=== PATIENT | male | born 1960 | race African-American/Black ===

== ENCOUNTER 2018-04-24 21:41 | Emergency (ER) | payer MEDICAID ==
[~2018-04-24] VITALS: Ht 177.8 cm; Wt 82.6 kg
[~2018-04-24 21:41] MED LIST: AMLO5TAB13 PO; ASPI81CH43 PO; ATOR20TA50 PO; LEV100T PO; LEV50T PO
[2018-04-24 22:03] VITALS: BP 124/86
[2018-04-24 23:05] LABS: Basophils # (auto) 0.1 uL; Basophils % (auto) 1.5 % (0.0-2.0); Eosinophils # (auto) 0.1 uL; Eosinophils % (auto) 2.1 % (0.0-7.0); Hematocrit 38.3 % (41.0-53.0); Lymphocytes # (auto) 2.3 uL; Lymphocytes % (auto) 41.5 % (10.0-50.0); Mean Corpuscular Hemoglobin 32.8 pg (28.0-32.0); Mean Corpuscular Hgb Conc. 33.9 g/dL (32.0-36.0); Mean Corpuscular Volume 96.6 fL (80.0-100.0); Monocytes # (auto) 0.3 uL; Monocytes % (auto) 5.9 % (0.0-12.0); Neutrophils # (auto) 2.7 uL; Nucleated Red Blood Cells % 0.1 %; Platelet Count (auto) 188 10^3/uL (140-450); Red Blood Cells 3.97 10^6/uL (4.5-5.90); White Blood Cell 5.6 10^3/uL (4.4-10.8)
[2018-04-24 23:19] LABS: INR 0.99 (0.9-1.15)
[2018-04-24 23:24] LABS: Alanine Aminotransferase 68 U/L (16-61); Albumin 3.6 g/dL (3.4-5.0); Anion Gap 8 (5-15); Aspartate Aminotransferase 66 U/L (15-37); BUN/Creatinine Ratio 10.5; Blood Urea Nitrogen 13 mg/dL (7-18); Calcium 8.4 mg/dL (8.5-10.1); Carbon Dioxide 22 mmol/L (21-32); Chloride 107 mmol/L (98-107); GFR African American 78 mL/min; GFR Non-African American 64 mL/min; Glucose 91 mg/dL (74-106); Magnesium 2.4 mg/dL (1.6-2.6); Potassium 4.2 mmol/L (3.5-5.1); Sodium 137 mmol/L (136-145)
[2018-04-24 23:31] LABS: Alkaline Phosphatase 72 U/L (45-117); Bilirubin, Total 0.3 mg/dL (0.2-1.0); Total Protein 7.7 g/dL (6.4-8.2)
== END 2018-04-25 01:00 | disposition left against medical advice (07) ==
LOC: ER 21:41
DX: R53.1 Weakness (principal); Z53.21 Procedure and treatment not carried out due to patient leaving prior to being seen by health care provider
CPT/HCPCS: 36415; 71045; 80053; 83735; 83880; 84484; 85025; 85379; 85610; 85730; 93005; 94761

== ENCOUNTER 2020-04-18 07:43 | Emergency (ER) | payer MEDICAID ==
[~2020-04-18] VITALS: Ht 177.8 cm; Wt 97.5 kg
[~2020-04-18 07:43] MED LIST changes: -AMLO5TAB13 PO; +AMLO5TAB15 PO
[2020-04-18 07:55] VITALS: BP 112/62
[2020-04-18] MEDS ORDERED: KETOROLAC TROMETH 60MG/2ML VIAL IM ONE (08:30)
== END 2020-04-18 08:47 | disposition home or self-care (01) ==
LOC: ER 07:43
DX: S83.8X2A Sprain of other specified parts of left knee, initial encounter (principal); M17.12 Unilateral primary osteoarthritis, left knee; F17.210 Nicotine dependence, cigarettes, uncomplicated; E78.5 Hyperlipidemia, unspecified; I10 Essential (primary) hypertension; Z79.82 Long term (current) use of aspirin; Z79.899 Other long term (current) drug therapy; Z86.73 Personal history of transient ischemic attack (TIA), and cerebral infarction without residual deficits; Z90.49 Acquired absence of other specified parts of digestive tract; Z98.890 Other specified postprocedural states; W11.XXXA Fall on and from ladder, initial encounter; Y93.89 Activity, other specified; Y92.89 Other specified places as the place of occurrence of the external cause; Y99.8 Other external cause status
CPT/HCPCS: 73562; 96372; 99283; J1885

== ENCOUNTER 2024-01-19 11:47 | Inpatient (IN) | payer OTHER ==
[~2024-01-19] VITALS: Ht 177.8 cm; Wt 85.2 kg
[~2024-01-19 11:47] MED LIST changes: +AMLO1TAB22 PO; -AMLO5TAB15 PO
[2024-01-19] MEDS: ONDANSETRON HCL 4 MG/2 ML VIAL IV ONE (12:36)
[2024-01-19 12:39] VITALS: PULSE 85; RESP 14; O2SAT 96
[2024-01-19] MEDS: SODIUM CHLORIDE 0.9% 500 ML IVB ONE (12:39)
[2024-01-19 13:10] LABS: Basophils # (auto) 0.1 10 ^3/uL (0-0.2); Basophils % (auto) 1.2 % (0.0-2.0); Chloride 107 mmol/L (98-107); Eosinophils # (auto) 0.1 10 ^3/uL (0-0.8); Eosinophils % (auto) 1.5 % (0.0-7.0); Hemoglobin 11.4 g/dL (13.5-17.5); Lymphocytes # (auto) 2.4 10 ^3/uL (0.4-5.4); Lymphocytes % (auto) 37.8 % (10.0-50.0); Mean Corpuscular Hemoglobin 33.3 pg (28.0-32.0); Mean Corpuscular Hgb Conc. 33.4 g/dL (32.0-36.0); Mean Corpuscular Volume 99.7 fL (80.0-100.0); Monocytes # (auto) 0.3 10 ^3/uL (0-1.3); Monocytes % (auto) 5.5 % (0.0-12.0); Neutrophils # (auto) 3.4 10 ^3/uL (1.6-8.6); Potassium 4.3 mmol/L (3.5-5.1); Red Blood Cells 3.41 10^6/uL (4.5-5.90); Red Cell Distribution Width 13.5 % (11.8-14.3); Sodium 137 mmol/L (136-145); White Blood Cell 6.3 10^3/uL (4.4-10.8)
[2024-01-19 13:11] LABS: Anion Gap 6 (5-15); Carbon Dioxide 24 mmol/L (20-30)
[2024-01-19 13:12] LABS: Calcium 9.6 mg/dL (8.5-10.1)
[2024-01-19 13:16] LABS: BUN/Creatinine Ratio 13.9 (10.0-20.0); Blood Urea Nitrogen 20 mg/dL (9-23); Glucose 80 mg/dL (74-106)
[2024-01-19 15:20] LABS: Urine Bacteria None Seen /hpf (None Seen)
[2024-01-19 15:38] LABS: Urine Blood Negative /uL (Negative); Urine Clarity Clear (Clear); Urine Color Colorless (Yellow); Urine Protein, UAD Negative (Negative); Urine Specific Gravity 1.013 (1.001-1.035); Urine Urobilinogen Normal (Negative); Urine WBC <1 /hpf (0 - 3)
[2024-01-19 20:00] VITALS: PULSE 51; RESP 13; O2SAT 95
[2024-01-19] MEDS ORDERED: ONDANSETRON HCL 4 MG/2 ML VIAL IV PRN (21:00)
[2024-01-19] MEDS ORDERED: ACETAMINOPHEN 325 MG TAB PO PRN (21:00)
[2024-01-19] MEDS ORDERED: HYDROcodone-ACET 5/325MG TAB PO PRN (21:00)
[2024-01-19] MEDS ORDERED: DOCUSATE SOD 100 MG CAP PO PRN (21:00)
[2024-01-19] MEDS: SODIUM CHLORIDE 0.9% 1,000 ML IV SCH (21:05)
[2024-01-19] MEDS: ATORVASTATIN 20 MG TAB PO SCH (22:19)
[2024-01-19] MEDS ORDERED: MORPHINE SULFATE INJ 2 MG/ml SYRG IV PRN (23:45)
[2024-01-19] MEDS ORDERED: NITROGLYCERIN 0.4 MG SL TAB SL PRN (23:45)
[2024-01-20] VITALS (9 sets, daily range): BP systolic 90–126; BP diastolic 32–85; PULSE 41–57; RESP 16–18; TEMP 97.8–98.7; O2SAT 94–100
[2024-01-20] MEDS: LEVOTHYROXINE SODIUM 50 MCG TAB PO SCH (05:41)
[2024-01-20 06:17] LABS: Basophils # (auto) 0.1 10 ^3/uL (0-0.2); Basophils % (auto) 1.2 % (0.0-2.0); Eosinophils # (auto) 0.1 10 ^3/uL (0-0.8); Eosinophils % (auto) 2.4 % (0.0-7.0); Hematocrit 34.9 % (41.0-53.0); Hemoglobin 11.8 g/dL (13.5-17.5); Lymphocytes # (auto) 2.3 10 ^3/uL (0.4-5.4); Lymphocytes % (auto) 42.9 % (10.0-50.0); Mean Corpuscular Hgb Conc. 33.8 g/dL (32.0-36.0); Mean Corpuscular Volume 100.6 fL (80.0-100.0); Monocytes # (auto) 0.3 10 ^3/uL (0-1.3); Monocytes % (auto) 4.8 % (0.0-12.0); Neutrophils # (auto) 2.6 10 ^3/uL (1.6-8.6); Neutrophils % (auto) 48.7 % (37.0-80.0); Red Blood Cells 3.47 10^6/uL (4.5-5.90); Red Cell Distribution Width 13.7 % (11.8-14.3); White Blood Cell 5.3 10^3/uL (4.4-10.8)
[2024-01-20 06:35] LABS: Alanine Aminotransferase 40 U/L (7-40); Albumin 3.9 g/dL (3.2-4.8); Alkaline Phosphatase 42 U/L (46-116); Anion Gap 3 (5-15); Aspartate Aminotransferase 48 U/L (13-40); BUN/Creatinine Ratio 11.9 (10.0-20.0); Bilirubin, Total 0.4 mg/dL (0.2-1.0); Blood Urea Nitrogen 16 mg/dL (9-23); Calcium 9.3 mg/dL (8.7-10.4); Carbon Dioxide 27 mmol/L (20-30); Chloride 108 mmol/L (98-107); Glucose 74 mg/dL (74-106); Potassium 4.5 mmol/L (3.5-5.1); Sodium 138 mmol/L (136-145); Total Protein 6.5 g/dL (5.7-8.2)
[2024-01-20] MEDS: ASPirin 81 mg TAB PO SCH (11:44)
[2024-01-20 11:54] LABS: Urine Bacteria None Seen /hpf (None Seen)
[2024-01-20 12:09] LABS: Urine Blood Negative /uL (Negative); Urine Clarity Clear (Clear); Urine Color Light-Yellow (Yellow); Urine Protein, UAD Negative (Negative); Urine Specific Gravity 1.012 (1.001-1.035); Urine Urobilinogen Normal (Negative); Urine WBC <1 /hpf (0 - 3)
[2024-01-20 12:47] LABS: Amphetamine Screen, Urine Neg (NEGATIVE); Barbiturate Scree,Urine Neg (NEGATIVE); Benzodiazephine Screen, Urine Neg (NEGATIVE); Cannabinoid Screen, Urine Pos (NEGATIVE); Cocaine Screen, Urine Neg (NEGATIVE); Opiate Scree,Urine Neg (NEGATIVE); Phencyclidine Screen, Urine Neg (NEGATIVE)
[2024-01-20] MEDS: LEVOTHYROXINE SODIUM 100 MCG/5 ML INJ IV ONE (18:10)
[2024-01-21] VITALS (8 sets, daily range): BP systolic 90–112; BP diastolic 53–71; PULSE 45–58; RESP 16–18; TEMP 97.6–98.6; O2SAT 96–99
[2024-01-21 05:23] LABS: Chloride 107 mmol/L (98-107); Sodium 138 mmol/L (136-145)
[2024-01-21 05:24] LABS: Anion Gap 6 (5-15); Carbon Dioxide 25 mmol/L (20-30)
[2024-01-21 05:25] LABS: Calcium 9.4 mg/dL (8.5-10.1)
[2024-01-21 05:29] LABS: Blood Urea Nitrogen 15 mg/dL (9-23); Glucose 84 mg/dL (74-106)
[2024-01-21] MEDS: LEVOTHYROXINE SODIUM 100 MCG/5 ML INJ IV SCH (09:04)
[2024-01-22 01:00] VITALS: BP 94/57; PULSE 55; RESP 17; TEMP 97.8; O2SAT 96
[2024-01-22 05:00] VITALS: BP 95/52; PULSE 49; RESP 18; TEMP 98.1; O2SAT 95
[2024-01-22 08:00] VITALS: PULSE 53; RESP 17; O2SAT 97
[2024-01-22 09:00] VITALS: BP 115/62; PULSE 69; RESP 17; TEMP 97.9; O2SAT 99
[2024-01-22 12:33] VITALS: BP 99/63; PULSE 49; RESP 16; TEMP 98.1; O2SAT 100
[2024-01-22 12:53] LABS: Free T3 0.87 pg/mL (2.3-4.2)
[2024-01-22 12:57] LABS: Free T4 (Free Thyroxine) 0.19 ng/dL (0.89-1.76)
[2024-01-22 16:29] VITALS: BP 102/60; PULSE 46; RESP 17; TEMP 97.9; O2SAT 97
== END 2024-01-22 18:30 | disposition short-term general hospital (02) | DRG 644 ==
LOC: ER 11:47 → TELE 23:43 → TELE-WESTW 01-20 03:06
PROVIDERS: ADMIT Nurse Practitioner Family; ATTEND Internal Medicine Geriatric Medicine
DX: E03.9 Hypothyroidism, unspecified (principal); N17.9 Acute kidney failure, unspecified; S09.90XA Unspecified injury of head, initial encounter; R55 Syncope and collapse; I10 Essential (primary) hypertension; E66.9 Obesity, unspecified; F17.210 Nicotine dependence, cigarettes, uncomplicated; E78.2 Mixed hyperlipidemia; W18.39XA Other fall on same level, initial encounter; Z86.73 Personal history of transient ischemic attack (TIA), and cerebral infarction without residual deficits; Z90.49 Acquired absence of other specified parts of digestive tract; Z82.49 Family history of ischemic heart disease and other diseases of the circulatory system; Z91.148 Patient's other noncompliance with medication regimen for other reason; Z91.199 Patient's noncompliance with other medical treatment and regimen due to unspecified reason; Y93.89 Activity, other specified; Y92.89 Other specified places as the place of occurrence of the external cause; Y99.8 Other external cause status; Z68.27 Body mass index [BMI] 27.0-27.9, adult
CPT/HCPCS: 36415; 70450; 71046; 80048; 80053; 80061; 80307; 81001; 83036; 83735; 84439; 84443; 84481; 84484; 85025; 93005; 93306; 93886; 96361; 96374; 99291; G0378; J2405; J3490